=== PATIENT | male | born 1975 ===

== ENCOUNTER → 2017-10-20 | Outpatient (CLI) | payer OTHER ==
[~2017-10-20] MED LIST: IOHEXOL 300 MG/ML 100ML BOTTLE IJ ONE
[2017-10-20 10:52] LABS: BUN/Creatinine Ratio 8.4; Calcium 9.5 mg/dL (8.5-10.1); Potassium 4.5 mmol/L (3.5-5.1)
== END | disposition home or self-care (01) ==
LOC: CT 09:53
DX: J84.10 Pulmonary fibrosis, unspecified (principal); K76.0 Fatty (change of) liver, not elsewhere classified
CPT/HCPCS: 36415; 71260; 80048; Q9967